=== PATIENT | male | born 1955 | race Caucasian/White ===

== ENCOUNTER → 2023-10-17 13:42 | Outpatient (REF) | payer MEDICARE, OTHER, SELFPAY | LOC: HWRAD 13:42 | PROVIDERS: ATTENDING PHYSICIAN Nurse Practitioner | DX: K76.0 Fatty (change of) liver, not elsewhere classified (principal); R74.8 Abnormal levels of other serum enzymes | CPT/HCPCS: 76700 ==

== ENCOUNTER 2024-07-10 07:54 | Emergency (ER) | payer MEDICARE, OTHER, SELFPAY ==
[2024-07-10 07:59] VITALS: BP 128/83
[2024-07-10 08:02] VITALS: BP 128/83
[2024-07-10 08:08] VITALS: BMI 36.6
[2024-07-10 08:40] LABS: % Basophils 0.6 % (0-2); % Eosinophils 0.1 % (0-6); % Immature Granulocytes 1.2 % (0-0.5); % Lymphocytes 16.8 % (20.5-51.1); % Monocytes 8.7 % (1.7-9.3); % Neutrophils 72.6 % (42.2-75.2); Absolute Basophils 0.1 10^3/uL (0-0.2); Absolute Immature Granulocytes 0.1 10^3/uL (0-0.05); Absolute Lymphocytes 1.5 10^3/uL (1.2-3.4); Absolute Monocytes 0.8 10^3/uL (0.1-0.6); Absolute Neutrophils 6.3 10^3/uL (1.4-6.5); Hematocrit 39.5 % (39.0-52.0); Hemoglobin 13.6 g/dL (13.0-18.0); Mean Corp Hgb Conc. 34.4 g/dL (33.0-37.0); Mean Corpuscular Hgb 35.4 pg (27.0-31.0); Mean Corpuscular Volume 102.9 fL (80.0-94.0); Mean Platelet Volume 9.9 fL (7.4-10.4); Nucleated Red Blood Cells % 0 % (-); Platelet Count 113 10^3/uL (130-400); Red Blood Cell Count 3.84 10^6/uL (4.70-6.10); White Blood Cell Count 8.6 10^3/uL (4.8-10.8)
[2024-07-10 09:00] VITALS: BP 134/84
[2024-07-10 09:09] LABS: Blood Urea Nitrogen 17 mg/dl (9-20); Calcium 8.9 mg/dl (8.4-10.2); Carbon Dioxide 24 mmol/L (22-30); Chloride 95 mmol/L (98-107); Estimated Creatinine Clearance 71 ml/min; Glucose 134 mg/dl (70-99); Sodium 133 mmol/L (135-145); eGFR > 60.00
[2024-07-10 10:03] LABS: Creatine Phosphokinase 162 U/L (55-170)
[2024-07-10 10:37] LABS: Urine Albumin Negative (Neg - Trace); Urine Bilirubin 1+ (Negative); Urine Character Clear (Clear); Urine Color Yellow; Urine Glucose Negative (Negative); Urine Ketone 1+ (Negative); Urine Leukocyte Negative (Negative); Urine Nitrite Negative (Negative); Urine Occult Blood Negative (Negative); Urine Urobilinogen 1+ (Neg - 1+)
--- NOTE | 2024-07-10 13:48 | ED.GENMED ---
History of Present Illness
General
Chief Complaint: Weakness
Source: patient and spouse
Exam Limitations: none
Time Seen by Provider: 07/10/24 08:33
Nursing documentation reviewed up to this point in time: agreed with
History of Present Illness
History of Present Illness:
69-year-old male with past medical history of diabetes presenting to the emergency department today with concerns of lower extremity weakness. Started yesterday had a fall hit his back directly had some pain to his back since yesterday improving
today. No ongoing back pain at this point but has significant leg weakness unable to walk today unable to get up the stairs today as well. He was brought in by EMS due to inability to walk. Denies any change in bowel or bladder function no saddle
anesthesia
Past History
Past History
ED Past Medical History: Asthma, HTN, Hypercholesterolemia, NIDDM and Other
ED Past Surgical History: Cholecystectomy and Orthopedic
Social History
Tobacco: Non-smoker
Alcohol: Daily
Drug: None
Personal:
Living: with family
Employment: Employed
Family History
Family History: Hypertension and Other
Review of Systems
Review of Systems
Allergies reviewed?: Yes
All Other Systems: ROS reviewed and negative except as documented in HPI and ROS
Phy Exam
Physical Exam
Physical Exam:
GENERAL: Alert , in no apparent distress
EYE: pupils equal and reactive
NECK: Supple, no significant adenopathy.
ENT: o/p clr, mmm.
CARDIAC: Regular rate and rhythm .
LUNGS: Clear breath sounds bilaterally, no acute respiratory distress, no wheezes/rales/rhonchi
ABDOMEN: Soft, without focal tenderness, no r/g, no cvat
NEUROLOGICAL: Alert and oriented, no focal neuro deficits
SKIN: Warm and dry, skin intact.
MUSCULOSKELETAL: 4-5 strength to hip extension as well as knee extension as well as hip flexion. Otherwise good strength at the ankles. Claims abnormal sensation when palpating bilaterally. No saddle anesthesia. No edema, well perfused.
PSYCH: Normal and appropriate interaction.
Course
Orders/Labs/Results
Orders:
Orders
07/10/24 08:09
Electrocardiogram (*1) Urgent
Reason for Study: Fatigue / Weakness
07/10/24 08:10
EKG- Treatment ONCE
07/10/24 08:15
Basic Metabolic Panel Urgent
Complete Blood Count/With Diff Urgent
Creatine Phosphokinase Urgent
Comment: ADD ON
07/10/24 08:37
Add On- LAB Urgent
Tests Added?: creatine kinase
07/10/24 09:54
MR Lumbar Without Contrast Urgent
Comment:
Reason For Exam: leg weakness
Recent pill cam endoscopy?: No
07/10/24 10:25
Urinalysis Reflex To Culture Urgent
Date Specimen was Collected: 07/10/24
Time Specimen was Collected: 08:09
Abnormal Lab Results
07/10/24 07/10/24
08:15 10:25
RBC 3.84 L 10^6/uL
(4.70-6.10)
MCV 102.9 H fL
(80.0-94.0)
MCH 35.4 H pg
(27.0-31.0)
Plt Count 113 L 10^3/uL
(130-400)
Abs Immat Gran (auto) 0.1 H 10^3/uL
(0-0.05)
Absolute Monos (auto) 0.8 H 10^3/uL
(0.1-0.6)
Immature Gran % 1.2 H %
(0-0.5)
Lymphocytes % 16.8 L %
(20.5-51.1)
Sodium 133 L mmol/L
(135-145)
Chloride 95 L mmol/L
(98-107)
Glucose 134 H mg/dl
(70-99)
Urine Ketones 1+ A
(Negative)
Urine Bilirubin 1+ A
(Negative)
07/10/24 08:15
07/10/24 08:15
Vital Signs
Initial and Last Documented VS:
Initial Vital Signs
Temp Pulse Resp BP Pulse Ox
98.2 F 103 18 128/83 94
07/10/24 07:59 07/10/24 07:59 07/10/24 07:59 07/10/24 07:59 07/10/24 07:59
Last Documented Vital Signs
Temp Pulse Resp BP Pulse Ox
98.2 F 95 17 134/84 92
07/10/24 07:59 07/10/24 10:00 07/10/24 10:00 07/10/24 09:00 07/10/24 10:00
MDM/Problems Addressed
MDM/Problems Addressed:
69-year-old male presenting to the emergency department today with concerns of lower extremity weakness since yesterday. Also had a fall hit his back had pain at the time no pain currently. Denies any bowel or bladder dysfunction but does have
lower extremity weakness and does have weakness against resistance of his hip and knee. MRI showed L3 acute fracture as well as potential multilevel stenosis of the lumbar spinal canal secondary to a large amount of epidural lipomatosis including
severe stenosis at L2-L3 L3-L4. Case discussed with neurosurgery that recommended transfer for assessment at [place]. Patient agreeable send in stable condition.
*Critical Care Note
Total Time (30-74mins, 75-104mins- exclusive of procedures): Not Applicable
ED Attending Note
-
Portions of this chart may have been created with voice recognition software.� Occasional wrong word or��sound alike� substitutions may have occurred due to the inherent limitations of voice recognition software.
Discharge Plan
Departure
Patient Disposition: Acute Care Hospital
Date of Disposition: 07/10/24
Time of Disposition: 13:51
Patient with high blood pressure during this ER visit?: No
Condition: Fair
Covid-19: Not Applicable
Discharge Problem:
Closed compression fracture of L3 vertebra, Bilateral leg weakness
Prescriptions:
No Action
aspirin 81 MG tablet,delayed release (DR/EC)
81 mg PO DAILY
furosemide 20 MG tablet
20 mg PO DAILY PRN (Reason: swelling)
amlodipine 5 MG tablet
5 mg PO DAILY
simvastatin 20 MG tablet
20 mg PO DAILY
hydrochlorothiazide 25 MG tablet
25 mg PO DAILY
metformin 500 MG tablet extended release 24 hr
500 mg PO HS
Referrals:
Anabel Pace CRNP [Family Provider] -
Hospital Transfer
Other hospital: [place]
I certify that the patient requires transfer: Yes
Discussed case with accepting physician: Yes
Reason for transfer: higher level of care, availability of service and specialties available
Interventions
Interventions:
*Risk Screen - Suicide Last Done: 07/10/24 07:59
*General Assessment Last Done: 07/10/24 07:59
*Neglect/Abuse Screening Last Done: 07/10/24 07:59
ED- Cardiac Assessment Last Done: 07/10/24 08:36
ED- Neurological Assessment Last Done: 07/10/24 08:36
ED- Pulmonary Assessment Last Done: 07/10/24 08:36
Discharge Date and Time
Print Language: SINHALA
== END 2024-07-10 13:46 | disposition short-term general hospital (02) ==
LOC: EMR 07:54
PROVIDERS: EMERGENCY PHYSICIAN Emergency Medicine; FAMILY PHYSICIAN Nurse Practitioner
DX: S32.038A Other fracture of third lumbar vertebra, initial encounter for closed fracture (principal); W19.XXXA Unspecified fall, initial encounter; R53.1 Weakness; E11.9 Type 2 diabetes mellitus without complications; E78.00 Pure hypercholesterolemia, unspecified; I10 Essential (primary) hypertension; J45.909 Unspecified asthma, uncomplicated; Z90.49 Acquired absence of other specified parts of digestive tract
CPT/HCPCS: 99285; 72148; 80048; 81003; 82550; 85025; 93005

== ENCOUNTER 2024-08-04 07:13 | Emergency (ER) | payer MEDICARE, OTHER, SELFPAY ==
[2024-08-04 07:23] VITALS: BP 136/102
[2024-08-04 07:31] VITALS: BMI 35.5
[2024-08-04 08:13] VITALS: BP 117/83
--- NOTE | 2024-08-04 08:44 | ED.GENMED ---
History of Present Illness
<Ashish Boss Jr., PA-C - Last Filed: 08/04/24 13:49>
General
Chief Complaint: Back Pain
Source: patient
Exam Limitations: none
Time Seen by Provider: 08/04/24 07:34
Nursing documentation reviewed up to this point in time: agreed with
History of Present Illness
History of Present Illness:
69-year-old male past medical history of hypertension, asthma, recent L3 compression fracture and spinal stenosis where [facility] presenting with concerns of sharp back pain no specific inciting
event or trauma. He does still have some vague lower extremity weakness that has been gradually improving over the past few weeks. He has been taking Advil at home without relief of the pain. Pain made worse with ambulation movement and certain
positions. Laying in certain positions symptoms do seem to improve. Denies any bowel or bladder dysfunction
Past History
<Ashish Boss Jr., PA-C - Last Filed: 08/04/24 13:49>
Past History
ED Past Medical History: Asthma, HTN, Hypercholesterolemia, NIDDM and Other
ED Past Surgical History: Cholecystectomy and Orthopedic
Social History
Tobacco: Non-smoker
Alcohol: Daily
Drug: None
Personal:
Living: with family
Employment: Employed
Family History
Family History: Hypertension and Other
Review of Systems
<Ashish Boss Jr., PA-C - Last Filed: 08/04/24 13:49>
Review of Systems
Allergies reviewed?: Yes
All Other Systems: ROS reviewed and negative except as documented in HPI and ROS
Phy Exam
<Ashish Boss Jr., PA-C - Last Filed: 08/04/24 13:49>
Physical Exam
Physical Exam:
GENERAL: Alert , in no apparent distress
EYE: pupils equal and reactive
NECK: Supple, no significant adenopathy.
ENT: o/p clr, mmm.
CARDIAC: Regular rate and rhythm .
LUNGS: Clear breath sounds bilaterally, no acute respiratory distress, no wheezes/rales/rhonchi
ABDOMEN: Soft, without focal tenderness, no r/g, no cvat
NEUROLOGICAL: Alert and oriented, no focal neuro deficits 5 out of 5 lower extremity strength normal sensation when palpating bilaterally
SKIN: Warm and dry, skin intact.
MUSCULOSKELETAL: No edema, well perfused.
PSYCH: Normal and appropriate interaction.
Course
<Ashish Boss Jr., PA-C - Last Filed: 08/04/24 13:49>
Orders/Labs/Results
Orders:
Orders
08/04/24 08:57
CT Lumbar Spine W/o Iv Contras Urgent
Comment:
Reason For Exam: low back pain hx of compression fx
08/04/24 09:00
Dexamethasone [Decadron] 10 mg PO NOW STA
Ketorolac [Toradol] 30 mg IM NOW STA
08/04/24 09:46
Oxycodone [Roxicodone] 5 mg PO NOW STA
Vital Signs
Initial and Last Documented VS:
Initial Vital Signs
Temp Pulse Resp BP Pulse Ox
98.7 F 113 18 136/102 97
08/04/24 07:23 08/04/24 07:23 08/04/24 07:23 08/04/24 07:23 08/04/24 07:23
Last Documented Vital Signs
Temp Pulse Resp BP Pulse Ox
98.7 F 91 15 139/87 98
08/04/24 07:23 08/04/24 08:13 08/04/24 08:13 08/04/24 09:30 08/04/24 08:13
<Madeleine Mitchell MD - Last Filed: 08/04/24 10:19>
Orders/Labs/Results
Orders:
Orders
08/04/24 08:57
CT Lumbar Spine W/o Iv Contras Urgent
Comment:
Reason For Exam: low back pain hx of compression fx
08/04/24 09:00
Dexamethasone [Decadron] 10 mg PO NOW STA
Ketorolac [Toradol] 30 mg IM NOW STA
08/04/24 09:46
Oxycodone [Roxicodone] 5 mg PO NOW STA
Vital Signs
Initial and Last Documented VS:
Initial Vital Signs
Temp Pulse Resp BP Pulse Ox
98.7 F 113 18 136/102 97
08/04/24 07:23 08/04/24 07:23 08/04/24 07:23 08/04/24 07:23 08/04/24 07:23
Last Documented Vital Signs
Temp Pulse Resp BP Pulse Ox
98.7 F 91 15 139/87 98
08/04/24 07:23 08/04/24 08:13 08/04/24 08:13 08/04/24 09:30 08/04/24 08:13
<Ashish Boss Jr., PA-C - Last Filed: 08/04/24 13:49>
MDM/Problems Addressed
MDM/Problems Addressed:
6-year-old male presenting to the emergency department with concerns of back pain. Recently diagnosed with a lumbar 4 fracture was transferred from the ER here to [place] was assessed by neurosurgery was treated conservatively and was in [place]
rehab until 10 days ago. Denies significant pain previously but pain started yesterday. Denies changes in neurologic function. Initially tachycardic on arrival but heart rate improving while resting. Case was discussed with neurosurgery they
recommended CT scan to assess the patient's fracture to ensure this does not worsen. CT scan was obtained that did not show any acute changes. Patient with significant improvement of symptoms after receiving medication here otherwise stable for
outpatient follow-up. Return precautions given.
<Ashish Boss Jr., PA-C - Last Filed: 08/04/24 13:49>
*Critical Care Note
Total Time (30-74mins, 75-104mins- exclusive of procedures): Not Applicable
ED Attending Note
<Ashish Boss Jr., PA-C - Last Filed: 08/04/24 13:49>
-
Portions of this chart may have been created with voice recognition software.� Occasional wrong word or��sound alike� substitutions may have occurred due to the inherent limitations of voice recognition software.
<Madeleine Mitchell MD - Last Filed: 08/04/24 10:19>
ED Attending Note
Patient seen and examined by attending physician: Yes
I performed the substantive portion of visit, reviewed & personally made and approve the management plan that is documented in note by myself or JOEL.: Yes
ED Attending Note:
69 yr old male with hx of compression fx, le weakness, presents with low back pain, 7/10. No assoc new weakness, incontinence. Pain worse with movement/walking. No perianal anesthesia. No trauma.
On exam, s/p meds, pt rates pain 0/10 at rest, 2/10 with movement. Resideual L le weakness noted, pulses intact. CT unremark for new illness. D/w pt and community service officer coordinator plan for d/c, reasons to rted.
Discharge Plan
Departure
Patient Disposition: Home (Routine Discharge)
Date of Disposition: 08/04/24
Time of Disposition: 10:30
Patient with high blood pressure during this ER visit?: No
Condition: Good
Covid-19: Not Applicable
Discharge Problem:
Low back pain
Instructions: Low Back Pain (DC)
Prescriptions:
New
prednisone 50 mg tablet
50 mg PO DAILY 4 Days Qty: 4 0RF
meloxicam 15 mg tablet
15 mg PO DAILY 10 Days Qty: 10 0RF
oxycodone 5 mg tablet
5 mg PO Q6H PRN (Reason: Pain) Qty: 7 0RF
No Action
aspirin 81 MG tablet,delayed release (DR/EC)
81 mg PO DAILY
oxycodone 5 mg Tablet
2.5 mg PO Q4H PRN (Reason: pain)
Rx Instructions:
2.5mg PO Q4h PRN pain, moderate (4-6)
cyanocobalamin (vitamin B-12) 1,000 mcg Tablet
1,000 mcg PO DAILY 30 Days Qty: 30 0RF
spironolactone 25 mg Tablet
25 mg PO DAILY 30 Days Qty: 30 0RF
docusate sodium 100 mg Capsule
100 mg PO BID 30 Days Qty: 60 0RF
amlodipine 5 MG tablet
2.5 mg PO DAILY Qty: 0 0RF
Rx Instructions:
2.5mg tablet PO daily
simvastatin 20 MG tablet
20 mg PO DAILY Qty: 0 0RF
Referrals:
Viet Nichole DO [Active] - Follow up in 10 days
Anabel Pace CRNP [Family Provider] -
Activity Restrictions/Additional Instructions:
You came to the emergency department today with concerns of back discomfort. Here you had a CT scan that did not show any changes to your previous diagnosed fracture. Please help closely with the neurosurgeon as well as your primary care doctor
and physical therapy. Return to the emergency department for any worsening, new or concerning symptoms.
Interventions
Interventions:
*Risk Screen - Suicide Last Done: 08/04/24 07:23
*General Assessment Last Done: 08/04/24 07:23
*Neglect/Abuse Screening Last Done: 08/04/24 07:23
*ED COVID-19 Vaccine History Last Done: 08/04/24 07:39
*Nursing Disposition Last Done: 08/04/24 10:42
ED-Musculoskeletal Assessment Last Done: 08/04/24 07:39
Discharge Date and Time
Discharge Date/Time: 08/04/24 10:43
Print Language: CUBAN
[2024-08-04] MEDS: TORADOL 30 MG IM (09:05)
[2024-08-04] MEDS: DECADRON 10 MG PO (09:26)
[2024-08-04 09:30] VITALS: BP 139/87
[2024-08-04] MEDS: ROXICODONE 5 MG PO (09:53)
== END 2024-08-04 10:43 | disposition home or self-care (01) ==
LOC: EMR 07:13
PROVIDERS: EMERGENCY PHYSICIAN Emergency Medicine; FAMILY PHYSICIAN Nurse Practitioner
DX: M54.50 Low back pain, unspecified (principal); M62.81 Muscle weakness (generalized); M48.56XA Collapsed vertebra, not elsewhere classified, lumbar region, initial encounter for fracture; I10 Essential (primary) hypertension; E11.9 Type 2 diabetes mellitus without complications; E78.00 Pure hypercholesterolemia, unspecified; J45.909 Unspecified asthma, uncomplicated; M48.00 Spinal stenosis, site unspecified; Z90.49 Acquired absence of other specified parts of digestive tract; Z88.2 Allergy status to sulfonamides; Z96.652 Presence of left artificial knee joint
CPT/HCPCS: 99284; 96372; 72131

== ENCOUNTER 2024-09-03 15:09 | Outpatient (RCR) | payer MEDICARE, OTHER, SELFPAY | END 2024-09-03 23:59 | disposition home or self-care (01) | LOC: RPT 15:09 | PROVIDERS: ATTENDING PHYSICIAN Physical Medicine & Rehabilitation; FAMILY PHYSICIAN Nurse Practitioner | DX: S32.030D Wedge compression fracture of third lumbar vertebra, subsequent encounter for fracture with routine healing (principal); M48.062 Spinal stenosis, lumbar region with neurogenic claudication; Z73.6 Limitation of activities due to disability; M62.81 Muscle weakness (generalized); R26.89 Other abnormalities of gait and mobility; M79.605 Pain in left leg; M79.604 Pain in right leg; Z86.16 Personal history of COVID-19; S32.030A Wedge compression fracture of third lumbar vertebra, initial encounter for closed fracture | CPT/HCPCS: 97110; 97112; 97163; 97167; 97530; 97535 ==

== ENCOUNTER 2024-10-01 14:55 | Outpatient (RCR) | payer MEDICARE, OTHER, SELFPAY | END 2024-10-01 23:59 | disposition home or self-care (01) | LOC: RPT 14:55 | PROVIDERS: ATTENDING PHYSICIAN Physical Medicine & Rehabilitation; FAMILY PHYSICIAN Nurse Practitioner | DX: S32.030D Wedge compression fracture of third lumbar vertebra, subsequent encounter for fracture with routine healing (principal); M48.062 Spinal stenosis, lumbar region with neurogenic claudication; Z73.6 Limitation of activities due to disability; M62.81 Muscle weakness (generalized); R26.89 Other abnormalities of gait and mobility; M79.605 Pain in left leg; M79.604 Pain in right leg; Z86.16 Personal history of COVID-19 | CPT/HCPCS: 72148; 97110; 97112; 97140; 97530 ==

== ENCOUNTER 2024-10-29 13:15 | Outpatient (RCR) | payer MEDICARE, OTHER, SELFPAY | END 2024-10-29 23:59 | disposition home or self-care (01) | LOC: RPT 13:15 | PROVIDERS: ATTENDING PHYSICIAN Physical Medicine & Rehabilitation; FAMILY PHYSICIAN Nurse Practitioner | DX: S32.030D Wedge compression fracture of third lumbar vertebra, subsequent encounter for fracture with routine healing (principal); M48.062 Spinal stenosis, lumbar region with neurogenic claudication; Z73.6 Limitation of activities due to disability; M79.605 Pain in left leg; M62.81 Muscle weakness (generalized); R26.89 Other abnormalities of gait and mobility; M79.604 Pain in right leg; Z86.16 Personal history of COVID-19 | CPT/HCPCS: 97110; 97112; 97530 ==

== ENCOUNTER 2024-11-05 11:29 | Outpatient (RCR) | payer MEDICARE, OTHER, SELFPAY | END 2024-11-21 05:32 | disposition home or self-care (01) | LOC: RPT 11:29 | PROVIDERS: ATTENDING PHYSICIAN Physical Medicine & Rehabilitation; FAMILY PHYSICIAN Nurse Practitioner | DX: S32.030D Wedge compression fracture of third lumbar vertebra, subsequent encounter for fracture with routine healing (principal); M62.81 Muscle weakness (generalized); R26.89 Other abnormalities of gait and mobility; M79.605 Pain in left leg; M79.604 Pain in right leg; Z86.16 Personal history of COVID-19; Z73.6 Limitation of activities due to disability; M48.062 Spinal stenosis, lumbar region with neurogenic claudication | CPT/HCPCS: 97110; 97112; 97530 ==

== ENCOUNTER 2025-01-01 17:04 | Outpatient (RCR) | payer MEDICARE, OTHER, SELFPAY | END 2025-01-01 23:59 | disposition home or self-care (01) | LOC: ROT 17:04 | PROVIDERS: ATTENDING PHYSICIAN Physical Medicine & Rehabilitation; FAMILY PHYSICIAN Family Medicine | DX: Z47.89 Encounter for other orthopedic aftercare (principal); R26.89 Other abnormalities of gait and mobility; Z73.6 Limitation of activities due to disability; R26.2 Difficulty in walking, not elsewhere classified; M62.81 Muscle weakness (generalized); M48.00 Spinal stenosis, site unspecified; R60.0 Localized edema; Z98.1 Arthrodesis status | CPT/HCPCS: 97110; 97112; 97116; 97162; 97167; 97530 ==

== ENCOUNTER 2025-02-02 16:13 | Outpatient (RCR) | payer MEDICARE, OTHER, SELFPAY | END 2025-02-02 23:59 | disposition home or self-care (01) | LOC: ROT 16:13 | PROVIDERS: ATTENDING PHYSICIAN Physical Medicine & Rehabilitation; FAMILY PHYSICIAN Family Medicine | DX: Z47.89 Encounter for other orthopedic aftercare (principal); R26.89 Other abnormalities of gait and mobility; Z73.6 Limitation of activities due to disability; R26.2 Difficulty in walking, not elsewhere classified; M62.81 Muscle weakness (generalized); M48.00 Spinal stenosis, site unspecified; R60.0 Localized edema; Z98.1 Arthrodesis status | CPT/HCPCS: 97110; 97112; 97116; 97530 ==

== ENCOUNTER 2025-02-19 11:23 | Outpatient (RCR) | payer MEDICARE, OTHER, SELFPAY | END 2025-02-19 23:59 | disposition home or self-care (01) | LOC: ROT 11:23 | PROVIDERS: ATTENDING PHYSICIAN Physical Medicine & Rehabilitation; FAMILY PHYSICIAN Family Medicine | DX: Z47.89 Encounter for other orthopedic aftercare (principal); R26.89 Other abnormalities of gait and mobility; Z73.6 Limitation of activities due to disability; M62.81 Muscle weakness (generalized); R26.2 Difficulty in walking, not elsewhere classified; M48.00 Spinal stenosis, site unspecified; R60.0 Localized edema; Z98.1 Arthrodesis status | CPT/HCPCS: 97110; 97112; 97530 ==

== ENCOUNTER 2025-02-24 09:42 | Emergency (ER) | payer MEDICARE, OTHER, SELFPAY ==
[2025-02-24 09:58] VITALS: BP 135/87
--- NOTE | 2025-02-24 11:16 | ED.MUSCINJ ---
HPI-Injury
General
Chief Complaint: Fall
Source: patient
Exam Limitations: none
Time Seen by Provider: 02/24/25 11:06
History of Present Illness-Injury
Initial Injury comments:
69-year-old male not anticoagulated presents after trip and fall. He states he was drinking too much last night and hit his forehead on something. He complains of left-sided neck pain but no numbness or tingling or weakness to the arms. In November
of this year he had a lumbar fusion. He tried ice to the neck. No other complaints at this time. There was no loss of consciousness.
Past History
Past History
ED Past Medical History: Asthma, HTN, Hypercholesterolemia, NIDDM and Other
ED Past Surgical History: Cholecystectomy and Orthopedic
Social History
Tobacco: Non-smoker
Alcohol: Daily
Drug: None
Personal:
Living: with family
Employment: Employed
Family History
Family History: Hypertension and Other
Phy Exam
Physical Exam
Physical Exam:
General: Well-appearing male no acute respiratory distress
HEENT: Normocephalic abrasion noted to the right forehead
Heart: Regular rate and rhythm
Lungs: Clear no wheeze musculoskeletal exam: No midline tenderness of the cervical spine. Good range of motion all extremities
He is tender over the left paraspinous area of the cervical spine
Injury Course
Orders/Labs/Results
Orders:
Orders
02/24/25 10:01
CT Cervical Spine W/o Iv Contr Urgent
Comment:
Reason For Exam: fall
CT Head W/o Iv Contrast Urgent
Comment:
Reason For Exam: fall
MDM/Problems Addressed
Differential Diagnosis Includes:
Head strike with neck pain. Consider cervical strain versus fracture versus intracranial hemorrhage. He is not anticoagulated. CT of the head and cervical spine were ordered and reviewed and are negative for acute traumatic injury. Patient
reassured. I suspect cervical strain. He has prescription for tramadol as needed as well as Robaxin as needed. No indication for admission. Stable for discharge
*Pulse Oximetry
SaO2: 94
Oxygen Mode of Delivery: Room air
Patient hypoxic: no
*Critical Care Note
Total Time (30-74mins, 75-104mins- exclusive of procedures): Not Applicable
ED Attending Note
-
Portions of this chart may have been created with voice recognition software.� Occasional wrong word or��sound alike� substitutions may have occurred due to the inherent limitations of voice recognition software.
Discharge Plan
Departure
Patient Disposition: Home (Routine Discharge)
Date of Disposition: 02/24/25
Time of Disposition: 11:20
Patient with high blood pressure during this ER visit?: No
Discharge Problem:
Cervical strain, acute
Prescriptions:
No Action
aspirin 81 MG tablet,delayed release (DR/EC)
81 mg PO DAILY
Rx Instructions:
RESUME ON 11/17/24
spironolactone 25 mg Tablet
25 mg PO DAILY 30 Days Qty: 30 0RF
simvastatin 20 MG tablet
20 mg PO DAILY Qty: 0 0RF
magnesium hydroxide [Milk of Magnesia] 400 mg/5 mL Suspension
30 ml PO DAILY PRN (Reason: constipation)
acetaminophen 325 mg Tablet
650 mg PO QIDPRN PRN (Reason: mild pain) 30 Days Qty: 100 0RF
gabapentin 400 mg Capsule
400 mg PO TID 30 Days Qty: 90 0RF
amlodipine 2.5 mg Tablet
2.5 mg PO QPM 30 Days Qty: 30 0RF
docusate sodium 100 mg Capsule
100 mg PO BID 30 Days Qty: 60 0RF
methocarbamol 500 mg Tablet
250 mg PO TIDPRN PRN (Reason: muscle pain/ spasms) 30 Days Qty: 90 0RF
sennosides [Linda-jen] 8.6 mg Tablet
8.6 mg PO BID 30 Days Qty: 60 0RF
cyanocobalamin (vitamin B-12) [Vitamin B-12] 1,000 mcg Tablet
1,000 mcg PO DAILY 30 Days Qty: 30 0RF
tramadol 50 mg Tablet
50 mg PO Q6HPRN PRN (Reason: severe pain) 5 Days Qty: 20 0RF
pantoprazole 40 mg Tablet,Delayed Release (Dr/Ec)
40 mg PO DAILY 30 Days Qty: 30 0RF
multivitamin with folic acid [Tab-A-Cricket] 400 mcg Tablet
1 tab PO DAILY 30 Days Qty: 30 0RF
enoxaparin [Lovenox] 40 mg/0.4 mL Syringe
40 mg SC QPM 30 Days Qty: 0 0RF
Activity Restrictions/Additional Instructions:
Rest. Use warm compresses to the neck. Continue with tramadol or Robaxin if needed. Return if worse otherwise follow-up with your doctor.
Interventions
Interventions:
*Risk Screen - Suicide Last Done: 02/24/25 09:58
*General Assessment Last Done: 02/24/25 09:58
Discharge Date and Time
Print Language: NIGERIEN
== END 2025-02-24 11:49 | disposition home or self-care (01) ==
LOC: EMR 09:42
PROVIDERS: EMERGENCY PHYSICIAN Emergency Medicine
DX: S16.1XXA Strain of muscle, fascia and tendon at neck level, initial encounter (principal); W01.0XXA Fall on same level from slipping, tripping and stumbling without subsequent striking against object, initial encounter; J45.909 Unspecified asthma, uncomplicated; I10 Essential (primary) hypertension; E78.00 Pure hypercholesterolemia, unspecified; E11.9 Type 2 diabetes mellitus without complications; Z82.49 Family history of ischemic heart disease and other diseases of the circulatory system; Z90.49 Acquired absence of other specified parts of digestive tract; Z98.1 Arthrodesis status
CPT/HCPCS: 99284; 70450; 72125

== ENCOUNTER 2025-04-02 12:57 | Outpatient (RCR) | payer MEDICARE, OTHER, SELFPAY | END 2025-04-02 23:59 | disposition home or self-care (01) | LOC: RPT 12:57 | PROVIDERS: ATTENDING PHYSICIAN Nurse Practitioner | DX: M54.2 Cervicalgia (principal); Z73.6 Limitation of activities due to disability; R29.3 Abnormal posture; Z91.81 History of falling | CPT/HCPCS: 97110; 97162; 97530 ==

== ENCOUNTER 2025-05-04 13:00 | Outpatient (RCR) | payer MEDICARE, OTHER, SELFPAY | END 2025-05-04 23:59 | disposition home or self-care (01) | LOC: RPT 13:00 | PROVIDERS: ATTENDING PHYSICIAN Nurse Practitioner | DX: M54.2 Cervicalgia (principal); Z73.6 Limitation of activities due to disability; R29.3 Abnormal posture; Z91.81 History of falling; M62.81 Muscle weakness (generalized) | CPT/HCPCS: 97110; 97112; 97530 ==

== ENCOUNTER 2025-06-02 08:23 | Outpatient (RCR) | payer MEDICARE, OTHER, SELFPAY | END 2025-06-02 23:59 | disposition home or self-care (01) | LOC: RPT 08:23 | PROVIDERS: ATTENDING PHYSICIAN Nurse Practitioner | DX: M54.2 Cervicalgia (principal); Z73.6 Limitation of activities due to disability; R29.3 Abnormal posture; M62.81 Muscle weakness (generalized); Z91.81 History of falling | CPT/HCPCS: 97110; 97112; 97140; 97530 ==

== ENCOUNTER 2025-06-30 08:35 | Outpatient (RCR) | payer MEDICARE, OTHER, SELFPAY | END 2025-06-30 12:10 | disposition home or self-care (01) | LOC: RPT 08:35 | PROVIDERS: ATTENDING PHYSICIAN Nurse Practitioner | DX: M54.2 Cervicalgia (principal); Z73.6 Limitation of activities due to disability; R29.3 Abnormal posture; M62.81 Muscle weakness (generalized); Z91.81 History of falling | CPT/HCPCS: 97110; 97112; 97140; 97530 ==